=== PATIENT | female | born 1955 | race Two or more races ===

== ENCOUNTER 2018-05-19 08:00 | Day surgery (SDC) | payer OTHER ==
[~2018-05-19] VITALS: Ht 160 cm; Wt 61.7 kg
[~2018-05-19 08:00] MED LIST: ATIVAN PO; PRILOSEC OTC20 MG PO; ZANTAC150 M3 PO
[2018-05-20] MEDS ORDERED: METOCLOPRAMIDE10 MG PO (13:18)
[2018-05-20] MEDS ORDERED: HYOSCYAMINE0.125 M1 SL (13:18)
== END 2018-05-20 09:00 | disposition home or self-care (01) ==
LOC: CIR.AMB 08:00 → O/R 08:20 → SURH 08:20 → EDSTATUS 11:45 → SURH 18:58 → O/R 18:58 → CIR.AMB 05-20 09:00 → SURH 05-20 14:53 → O/R 05-20 14:53
DX: K38.8 Other specified diseases of appendix (principal); F41.1 Generalized anxiety disorder; F32.89 Other specified depressive episodes; E78.00 Pure hypercholesterolemia, unspecified